=== PATIENT | female | born 1950 | race Caucasian/White ===

== ENCOUNTER 2020-06-18 06:29 | Day surgery (SDC) | payer MEDICARE ==
[~2020-06-18 06:29] MED LIST: DIPRIVAN 200 MG/20 ML IV ONE; Lactated Ringers 1,000 ML IV ONE
[2020-06-18] MEDS ORDERED: Lactated Ringers 1,000 ML IV SCH (06:30)
[2020-06-18 06:52] VITALS: O2SAT 98
[2020-06-18] MEDS ORDERED: Lactated Ringers 1,000 ML IV ONE (07:36)
[2020-06-18 09:29] VITALS: PULSE 69
[2020-06-18 09:49] VITALS: BP 140/65
--- NOTE | 2020-06-18 15:31 | OP ---
SURGERY DATE: 06/18/2020 SURGERY TIME: 804 PREOPERATIVE DIAGNOSIS: 1. WEIGHT LOSS. 2. CHRONIC DIARRHEA. POSTOPERATIVE DIAGNOSIS: 1. LARGE PERICECAL ASCENDING COLON POLYP. 2. SMALL ASCENDING COLON POLYPS. PROCEDURE: 1. Colonoscopy. SURGEON: Dr. Thong Domingo. ANESTHESIA: MAC by Robert Licona CRNA. SPECIMENS: 1. Hot snare polypectomy from large pericecal ascending colon polyp X 1. 2. Hot forceps polypectomy from ascending colon polyp. ESTIMATED BLOOD LOSS: Minimal. DESCRIPTION OF PROCEDURE: After informed written consent was obtained, the patient was taken to the endoscopy suite. After she signed informed written consent, she was placed in the left lateral decubitus position and underwent monitored anesthesia. Digital rectal exam showed normal sphincter tone and no internal lesions. The scope was inserted in the rectum and the entire colonic mucosa was traversed. The level of the cecum was reached and verified with direct visualization of the ileocecal valve. There was large broad-based polyp present in the pericecal region in the most proximal segment of the ascending colon. It was grasped with a snare and most of it was removed, but there was still residual polyp left which likewise was grasped again inside the snare and cauterized and removed in its entirety. The area was hemostatic and the entire lesion appeared to be adequately removed. There was small broad-based polyp just distal in the ascending colon which was likewise removed with the hot forceps and sent for pathology. Following this retrieval basket was deployed and both segments of the large polyp were grasped in a basket and then the scope was removed with good visualization of the colon upon withdrawal. Again, the scope was removed and the polyps were retrieved and sent for pathology testing. The scope was then reinserted to the level of the transverse colon as the entire ascending colon and pericecal region were felt to be adequately visualized and inspected prior to removal of those polyps. There were no other lesions encountered in the transverse, sigmoid, or rectal area. Prior to withdrawal, retroflexion showed no internal lesions. The scope was removed and the patient was transferred to the recovery room in good condition.
== END 2020-06-18 10:02 | disposition home or self-care (01) ==
LOC: SDC 06:29
PROVIDERS: ATTEND Family Medicine
DX: D12.2 Benign neoplasm of ascending colon (principal); K52.9 Noninfective gastroenteritis and colitis, unspecified; R63.4 Abnormal weight loss; E11.9 Type 2 diabetes mellitus without complications; I10 Essential (primary) hypertension; Z79.899 Other long term (current) drug therapy
CPT/HCPCS: 82962; 88305; 99100; J2704